=== PATIENT | male | born 1955 | race Caucasian/White ===

== ENCOUNTER 2022-04-30 16:03 | Emergency (ER) | payer MEDICARE, OTHER ==
[~2022-04-30] VITALS: Ht 172.7 cm; Wt 73.0 kg
--- NOTE | 2022-04-30 16:46 | NUR ---
TO ER BED 8. 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 ATTACHED TO MONITOR, CURRENT O2 SAT IN ROOM AIR RANGES BETWEEN 92-96%. PT IS A/O X3, VERBALIZES THAT HE IS A CURRENT SMOKER, <1 PACK A DAY.
--- NOTE | 2022-04-30 17:35 | NUR ---
DENISE (DTR) [phone]; PER DTR, PT'S ALLERGY IS HYDROCODONE BUT NOT SURE. PT ALSO HAS HX OF AORTIC STENT AND FOCAL IMPLANT.
[2022-04-30 17:36] LABS: BASOPHILS % (AUTO) 0.1 % (0.0-2.0); EOSINOPHILS % (AUTO) 0.1 % (0.0-6.0); HEMATOCRIT 29 % (39-51); HEMOGLOBIN 9.9 g/dL (13.5-17.5); LYMPHOCYTES # (AUTO) 1.6 K/uL (0.8-4.8); LYMPHOCYTES % (AUTO) 8.4 % (20.0-44.0); MEAN CORPUSCULAR HGB CONC 34 g/dl (31.0-36.0); MEAN CORPUSCULAR VOLUME 85 fL (80-96); MONOCYTES # (AUTO) 14.3 K/uL (0.1-1.30); MONOCYTES % (AUTO) 74.2 % (2.0-12.0); NEUTROPHILS # (AUTO) 3.3 K/uL (1.8-8.9); NEUTROPHILS % (AUTO) 17.2 % (43.0-81.0); RED BLOOD CELL COUNT(AUTO) 3.41 MIL/uL (4.5-6.0); WHITE BLOOD COUNT (AUTO) 19.3 K/uL (4.3-11.0)
[2022-04-30] MEDS ORDERED: HYDR12.55 PO (17:37)
[2022-04-30] MEDS ORDERED: APIX5TAB PO (17:37)
[2022-04-30] MEDS ORDERED: TRAM50TA2 PO (17:37)
[2022-04-30] MEDS ORDERED: METO25TA20 PO (17:37)
[2022-04-30] MEDS ORDERED: GABA-532 PO (17:37)
[2022-04-30] MEDS ORDERED: ALBU18HF2 IH (17:37)
[2022-04-30] MEDS ORDERED: ROSU20TA32 PO (17:37)
[2022-04-30] MEDS ORDERED: LISI20TA30 PO (17:37)
[2022-04-30] MEDS ORDERED: ALLO100T PO (17:37)
[2022-04-30 17:52] LABS: ALANINE AMINOTRANSFERASE 18 U/L (12-78); ALBUMIN 3.8 g/dL (3.4-5.0); ALKALINE PHOSPHATASE 110 U/L (46-116); ASPARTATE AMINOTRANSFERASE 15 U/L (15-37); BILIRUBIN,DIRECT 0.2 mg/dL (0.0-0.2); BILIRUBIN,TOTAL 0.6 mg/dL (0.2-1.0); CALCIUM, SERUM 8.8 mg/dL (8.5-10.1); CARBON DIOXIDE 28 mmol/L (21-32); CHLORIDE 99 mmol/L (98-107); CREATININE 1.7 mg/dL (0.6-1.3); GLUCOSE 128 mg/dL (74-106); POTASSIUM 3.6 mmol/L (3.5-5.1); SODIUM SERUM 135 mmol/L (136-145); TOTAL PROTEIN, SERUM 7.4 g/dL (6.4-8.2); UREA NITROGEN, BLOOD 18 mg/dL (7-18)
[2022-04-30 18:13] LABS: PLATELET COUNT (AUTO) 44 K/uL (150-450)
[2022-04-30 18:18] LABS: BAND % (MANUAL) 3 % (0.0-5.0); LYMPHOCYTES % (MANUAL) 23 % (16-48); MONOCYTES % (MANUAL) 58 % (0-11.0); NEUTROPHILS % (MANUAL) 14 (42-76); REACTIVE LYMPHOCYTES 2 % (0-0)
--- NOTE | 2022-04-30 19:18 | NUR ---
SPOKE W/ DTR OVER THE PHONE AND PROVIDED UPDATE ON PATIENT.
--- NOTE | 2022-04-30 19:38 | NUR ---
PT RESTING COMFORTABLY IN BED, DENIES ANY PAIN AT THIS TIME. WILL CONTINUE TO MONITOR.
[2022-04-30] MEDS ORDERED: CEPHALEXIN MONOHYDRATE 500 MG CAPSULE PO ONE ×2 (20:30→20:57)
--- NOTE | 2022-04-30 20:59 | NUR ---
Patient discharged to home in stable condition. Written and verbal after care instructions given. Patient verbalizes understanding of instruction. Pt ambulatory with a steady gait
--- NOTE | 2022-04-30 20:59 | NUR ---
IV removed. Catheter intact and site benign. Pressure and 4x4 applied to site. No bleeding noted.
[2022-04-30 22:02] VITALS: BP 101/60
== END 2022-04-30 22:02 | disposition home or self-care (01) ==
LOC: ER 16:06
DX: R53.1 Weakness (principal); J44.9 Chronic obstructive pulmonary disease, unspecified; Z88.8 Allergy status to other drugs, medicaments and biological substances; Z79.899 Other long term (current) drug therapy
CPT/HCPCS: 36415; 71045-TC; 80048-TC; 80076-TC; 84484-TC; 85025-TC; 85730-TC; 86850-TC